=== PATIENT | male | born 1955 | race Asian ===

== ENCOUNTER 2018-05-22 14:06 | Emergency (ER) | payer OTHER ==
[~2018-05-22] VITALS: Ht 180.3 cm; Wt 121.1 kg
[~2018-05-22 14:06] MED LIST: 904272561 PO; ABILIFY5 MG PO; ACTOS15 MG PO; BENZTROPINE0.5 MG PO; DIVA500T2 PO; ESCI10TA PO; FAMOTIDINE40 MG PO; FINGERSTIX; FURO40TA93 PO; HALO50IN4 IM; HALO5INJ3 IM; HALO5TAB10 PO; HYDROCHLOROT12.5 M1 PO; INSU100P SC; INSUINJ47 SC; JARDIANCE25 MG PO; LEXAPRO10 MG PO; LEXAPRO20 MG PO; LISI20TA11 PO; MEDR150I3 IM; NAC 600 PO; NOVOLOG MIX 70/30 PR SC; NUEDEXTA PO; PERICOLACE PO; POT CHLORIDE10 ME1 PO; PROVERA10 MG PO; QUET100T2 PO; QUET300T PO; RISP2TAB2 PO; RISPERDAL3 MG PO; SEROQUEL400 MG PO; SEROQUEL50 MG PO; SIMV10TA PO; TRIGLIDE160 MG PO; TRILEPTAL300 MG PO; ZANTAC300 MG PO; [UNRECOGNIZED DRUG - OTHER] IJ
[2018-05-22 14:14] VITALS: BP 166/78; TEMP 98
[2018-05-22] MEDS ORDERED: PIOG30TA PO (14:14)
[2018-05-22] MEDS ORDERED: LISI20TA11 PO (14:19)
[2018-05-22] MEDS ORDERED: ZESTRIL40 MG PO (14:21)
[2018-05-22] MEDS ORDERED: DIVA500T2 PO (15:37)
[2018-05-22] MEDS ORDERED: TOUJEO SOL300 UNIT/M SC (15:41)
[2018-05-22] MEDS ORDERED: ZOCOR5 MG PO (15:43)
[2018-05-22] MEDS ORDERED: TRILEPTAL300 MG PO ×2 (15:45→15:51)
[2018-05-22] MEDS ORDERED: SEROQUEL50 MG PO (15:46)
== END 2018-05-22 14:45 | disposition other institution (70) ==
LOC: ED 14:06
DX: F20.9 Schizophrenia, unspecified (principal); Z04.6 Encounter for general psychiatric examination, requested by authority; Z79.899 Other long term (current) drug therapy
CPT/HCPCS: 80307; 80320; 80329; 99281; 99285